=== PATIENT | female | born 1950 | race Caucasian/White ===

== ENCOUNTER → 2018-01-22 | Outpatient (CLI) | payer OTHER, MEDICARE | LOC: BMCIMAGING 13:15 | PROVIDERS: ATTEND Emergency Medicine | DX: S69.92XA Unspecified injury of left wrist, hand and finger(s), initial encounter (principal); S69.91XA Unspecified injury of right wrist, hand and finger(s), initial encounter; V18.0XXA Pedal cycle driver injured in noncollision transport accident in nontraffic accident, initial encounter ==

== ENCOUNTER 2018-12-23 08:35 | Emergency (ER) | payer OTHER, MEDICARE ==
[2018-12-23] MEDS ORDERED: HYDROCODONE/APAP 5/325 TAB ONE (08:46)
[2018-12-23] MEDS ORDERED: HYDROCODONE/APAP 5/325 TAB PO ONE (08:48)
--- NOTE | 2018-12-23 08:58 | EDPHY ---
H & P Time Seen by Provider: 12/23/18 08:55 HPI/ROS: CHIEF COMPLAINT: Right shoulder/arm pain HISTORY OF PRESENT ILLNESS: The patient is a 68-year-old female with a history of rheumatoid arthritis who presents emergency department after sustaining a fall last evening. Patient states she was in a [place] slipped last evening. She landed on her right shoulder. She initially had some shoulder pain but went to bed. Upon waking she had much greater pain. She now complains of swelling and pain over her proximal right arm. She also has right shoulder pain. She has no shortness of breath or chest pain. No back or spine discomfort. No weakness or numbness. Patient denies striking her head or losing consciousness. REVIEW OF SYSTEMS: 10 systems were reveiwed and are negative with the exception of the elements mentioned in the history of present illness. Past Medical/Surgical History: Includes rheumatoid arthritis Smoking Status: Former smoker Physical Exam: Vitals noted GENERAL: Well-appearing, alert. HEENT: Eyes normal to inspection, normal. NECK: Normal, supple. Nexus negative. RESPIRATORY: Clear to auscultation bilaterally, no rales, rhonchi or wheezing. CVS: Regular rate and rhythm, no rubs, murmurs, or gallops. ABDOMEN: Soft, nontender. BACK: Normal to inspection, no spinal tenderness. SKIN: Normal color, no rash, warm, dry. No pallor. EXTREMITIES: Patient has swelling over her proximal right humerus. There is mild bruising. No scapular or clavicular tenderness. Neurovascular intact distally. NEURO/PSYCH: Alert and oriented, normal mood and affect, normal motor sensory exam. Constitutional: Initial Vital Signs Temperature (C) 36.4 C 12/23/18 08:38 Heart Rate 85 12/23/18 08:38 Respiratory Rate 17 12/23/18 08:38 Blood Pressure 126/78 H 12/23/18 08:38 O2 Sat (%) 92 12/23/18 08:38 O2 Delivery Mode Room Air Allergies/Adverse Reactions: aspirin [Aspirin] Allergy (Severe, Verified 12/23/18 08:35) BLEEDING ULCER NSAIDS (Non-Steroidal Anti-Inflamma [Nsaids] Allergy (Severe, Verified 12/23/18 08:35) BLEEDING ULCER Home Medications: Medication Instructions Recorded Amitriptyline HCl 12/23/18 Hydrocodone/APAP 5/325 [[place] 1 - 2 tab PO Q4 #13 tab 12/23/18 5/325 (RX)] Ondansetron Odt [Zofran Odt 4 mg 4 mg PO Q4PRN PRN #7 tab 12/23/18 (*)] Ondansetron Odt [Zofran Odt 4 mg 4 mg PO Q4PRN PRN #7 tab 12/23/18 (*)] Xanax 12/23/18 Medical Decision Making - Diagnostics Imaging Results: Imaging Impressions Humerus X-Ray 12/23/18 08:46 Impression: Acute obliquely-oriented mildly displaced and angulated fracture with partial comminution involving the proximal humeral diaphysis extending to the base of the surgical neck. Shoulder X-Ray 12/23/18 08:46 Impression: Acute, comminuted, mildly displaced proximal right humeral diaphyseal fracture extending to the caudal margin of the surgical neck. ED Course/Re-evaluation: In the emergency department patient request pain medication. She was given Vicodin orally. X-rays were ordered. Right humerus x-ray: Please refer the dictated report. Patient has a comminuted fracture of the proximal humerus. I discussed the case with the PA from Dr. Overton. He reviewed the images. He recommend the patient be placed in a sling and follow-up in the office 1st thing tomorrow. I discussed this plan with the patient. She was given Vicodin and Zofran on discharge. She was placed in a shoulder sling prior to leaving. The patient was neurovascularly intact distally post sling placement. Differential Diagnosis: My differential includes but is not limited to fracture, dislocation, contusion , sprain, strain. - Data Points Medications Given: Discontinued Medications Hydrocodone Bitart/Acetaminophen ([place] 5/325) 2 tab PO EDNOW ONE Stop: 12/23/18 08:49 Last Admin: 12/23/18 08:49 Dose: 2 tab Departure - Departure Disposition: Home, Routine, Self-Care Clinical Impression: Humerus fracture Qualifiers: Encounter type: initial encounter Humerus Location: proximal Fracture type: closed Fracture morphology: other fracture Fracture alignment: displaced Laterality: right Qualified Code(s): S42.291A - Other displaced fracture of upper end of right humerus, initial encounter for closed fracture Condition: Good Instructions: Proximal Humerus Fracture (ED) Additional Instructions: I spoke with Dr. Overton is office from Orthopedics. He wishes to see you in their office tomorrow. You can call anytime after noon today to make the appointment. Keep your sling in place. Return with increasing numbness, weakness or any other concerns. Referrals: Kimmy Castro MD [Primary Care Provider] - As per Instructions Asher Overton MD [Medical Doctor] - 1 day without fail Prescriptions: Hydrocodone/APAP 5/325 [[place] 5/325 (RX)] 1 - 2 tab PO Q4 #13 tab Ondansetron Odt [Zofran Odt 4 mg (*)] 4 mg PO Q4PRN PRN #7 tab PRN Reason: For Nausea & Vomiting Ondansetron Odt [Zofran Odt 4 mg (*)] 4 mg PO Q4PRN PRN #7 tab PRN Reason: For Nausea & Vomiting
[2018-12-23 09:39] VITALS: BP 133/79
== END 2018-12-23 09:55 | disposition home or self-care (01) ==
DX: S42.291A Other displaced fracture of upper end of right humerus, initial encounter for closed fracture (principal); M06.9 Rheumatoid arthritis, unspecified; W19.XXXA Unspecified fall, initial encounter; Z87.891 Personal history of nicotine dependence
CPT/HCPCS: 73030; 73060; 99284; A4565